=== PATIENT | female | born 1980 | race African-American/Black ===

== ENCOUNTER 2017-01-24 08:00 | Inpatient (IN) | payer BC, OTHER ==
[2017-01-24] MEDS: ELECTROLYTE-148 SOLN 1,000 ML IV SCH (12:30)
[2017-01-24 13:07] VITALS: BMI 37.8
[2017-01-24] MEDS ORDERED: ONDANSETRON 4 MG/2 ML VIAL IVPB PRN (13:12)
[2017-01-24] MEDS ORDERED: ELECTROLYTE-148 SOLN 500 ML IV ONE (13:39)
[2017-01-24] MEDS ORDERED: CITRIC ACID/SODIUM CITRATE 30 ML UNIT-DOSE CUP PO ONE (13:39)
--- NOTE | 2017-01-24 13:51 | HP ---
Past Medical History - Admission Chief Complaint: here for scheduled repeat c section History of Present Illness: 36 y/o female here for repeat c section. No complaints today. Has daughter with tate-hirschorn syndrome, followed with MFM this - amniocentesis normal. Pt failed 1'GTT, couldn't tolerate 3'GTT - blood sugars overall controlled with diet. Otherwise uncomplicated . History Source: Patient, Medical Record Limitations to Obtaining History: No Limitations - Past Medical History [employer]END J[employer] DEVELOPER: No: Alzheimer's, Migraine Cardiovascular: No: HTN, RI Pulmonary: No: Asthma, COPD Gastrointestinal: No: GERD, Irritable Bowel Disease Hepatobiliary: No: Cholecystitis, Hepatitis B Renal/: No: Renal Failure, UTI Reproductive: Yes: Fibroids. No: Ectopic , Endometriosis ...: 5 ...Para: 2 ...Term: 2 ...: 0 ...Spon : 1 ...Induced : 1 ...Multiple Gestation: 0 ...LMP: 04/25/16 ... Weeks Gestation by Dates: 39.1 ...EDC by Dates: 01/30/17 ...EDC by Sono: 02/04/17 Heme/Onc: No: Anemia, Sickle Cell Disease Infectious Disease: No: HIV, STD's Psych: No: Anxiety, Bipolar, Depression Dermatology: No: Eczema, Melanoma - Past Surgical History Past Surgical History: Yes: None Hx Myomectomy: No Hx Transabdominal Cerclage: No - Smoking History Smoking history: Never smoked Have you smoked in the past 12 months: No - Alcohol/Substance Use Hx Alcohol Use: No History of Substance Use: reports: None - Social History Usual Living Arrangement: Yes: With Spouse ADL: Independent History of Recent Travel: No Home Medications - Allergies Allergies/Adverse Reactions: Allergies Allergy/AdvReac Type Severity Reaction Status Date / Time No Known Drug Allergies Allergy Verified 01/24/17 13:13 - Home Medications Home Medications: Ambulatory Orders Pnv95/Iron Fum/Folic Acid [ Caplet] 1 each PO DAILY 01/10/16 Review of Systems - Review of Systems Constitutional: reports: No Symptoms Eyes: reports: No Symptoms HENT: reports: No Symptoms Neck: reports: No Symptoms Cardiovascular: reports: No Symptoms Respiratory: reports: No Symptoms Gastrointestinal: reports: No Symptoms Genitourinary: reports: No Symptoms Breasts: reports: No Symptoms Reported Musculoskeletal: reports: No Symptoms Integumentary: reports: No Symptoms Neurological: reports: No Symptoms Endocrine: reports: No Symptoms Hematology/Lymphatic: reports: No Symptoms Psychiatric: reports: No Symptoms Physical Exam - Maternity Vital Signs: Vital Signs Temperature 98.2 F 01/24/17 12:00 Pulse Rate 108 H 01/24/17 12:00 Respiratory Rate 20 01/24/17 12:00 Blood Pressure 132/55 01/24/17 12:00 O2 Sat by Pulse Oximetry (%) Constitutional: Yes: Well Nourished, No Distress, Calm Eyes: Yes: Conjunctiva Clear, EOM Intact HENT: Yes: Atraumatic, Normocephalic Neck: Yes: Supple, Trachea Midline Cardiovascular: Yes: Regular Rate and Rhythm Lungs: Clear to auscultation - Abdominal Exam/OB Fundal Height: 40 Number of Fetuses: Single Presentation: Vertex Contractions: No Category: I Decelerations: None - Vaginal Exam/OB Vaginal Bleediing: No Amniotic Membrane Status: Intact Hemorrhage Risk Assessment - Risk Factors Medium Risk Factors: Yes: Prior , uterine surgery,or multiple laparotomies High Risk Factors: Yes: None Risk Score: 1 Risk Level: Medium Risk Problem List - Problems (1) Term Code(s): Z34.80 - ENCOUNTER FOR SUPRVSN OF NORMAL , UNSP TRIMESTER (2) History of delivery Code(s): Z98.891 - HISTORY OF UTERINE SCAR FROM PREVIOUS SURGERY Assessment/Plan 36 y/o female here for scheduled repeat c section at 39 weeks. - FHTS cat 1 - NPO, SCDs, abdominal prep - anesthesia and nursing aware
[2017-01-24] MEDS ORDERED: METHYLERGONOVINE MALEATE 0.2 MG/1 ML AMP IM PRN ×2 (15:09→15:10)
[2017-01-24] MEDS ORDERED: oxyCODONE HCL 5 MG TABLET PO PRN ×2 (15:10)
[2017-01-24] MEDS ORDERED: SIMETHICONE 80 MG TAB.CHEW (FP) PO PRN (15:10)
[2017-01-24] MEDS ORDERED: HYDROmorphone HCL CARPU-JECT 1 MG/1 ML DISP.SYRIN IM PRN (15:11)
[2017-01-24 15:52] LABS: BASOPHIL 0.5 % (0-2.0); EOSINOPHIL 0.4 % (0-4.5); MCH 20.6 pg (25.7-33.7); MCHC 29.6 g/dl (32.0-36.0); MEAN CELL VOLUME 69.4 fl (80-96); MEAN PLT VOLUME 9.4 fl (7.5-11.1); NEUTROPHILS 77.2 % (42.8-82.8); PLATELET COUNT 139 K/MM3 (134-434); RDW 18.8 % (11.6-15.6); WHITE BLOOD COUNT 10.8 K/mm3 (4.0-10.0)
[2017-01-24] MEDS: OXYTOCIN 20 UNITS in 0.9% NS 1,000 ML IV SCH ×2 (16:00→21:20)
[2017-01-24 17:18] LABS: INR 1.09 (0.82-1.09)
--- NOTE | 2017-01-24 17:44 | OP ---
Operative Note - Note: Operative Date: 01/24/17 Pre-Operative Diagnosis: prior section X 2, term SIUP Operation: Repeat section Findings: dense adhesions from uterus to anterior abdominal wall Post-Operative Diagnosis: Same as Pre-op Surgeon: Christie Rush Chairperson Anesthesiology: Mervin Kothari Anesthesiologist/HEALTH SPA MANAGER: Cat Oliva Anesthesia: Spinal Specimens Removed: placenta Estimated Blood Loss (mls): 1,000 Operative Report Dictated: Yes
[2017-01-24] MEDS ORDERED: CEFAZOLIN 1 GM/D5W 50 ML IVPB SCH (18:00)
[2017-01-24] MEDS: CEFAZOLIN 1 GM/D5W 50 ML IVPB SCH (21:10)
[2017-01-24 22:21] LABS: MCH 22.1 pg (25.7-33.7); MCHC 29.9 g/dl (32.0-36.0); MEAN CELL VOLUME 73.9 fl (80-96); MEAN PLT VOLUME 10.4 fl (7.5-11.1); PLATELET COUNT 131 K/MM3 (134-434); RDW 20.6 % (11.6-15.6); WHITE BLOOD COUNT 18.4 K/mm3 (4.0-10.0)
[2017-01-25] MEDS ORDERED: CEFAZOLIN (PRE-DOCKED) 50 ML IVPB ONE (02:31)
[2017-01-25] MEDS: CEFAZOLIN 1 GM/D5W 50 ML IVPB SCH ×2 (03:59→15:09)
[2017-01-25] MEDS: ACETAMINOPHEN 325 MG TABLET (FP) PO PRN ×2 (08:06→19:58)
[2017-01-25] MEDS: SIMETHICONE 80 MG TAB.CHEW (FP) PO PRN ×2 (08:06→19:58)
[2017-01-25] MEDS: IBUPROFEN 600 MG TABLET (FP) PO PRN ×2 (08:07→20:04)
[2017-01-25 08:46] LABS: MCH 22.3 pg (25.7-33.7); MCHC 30.5 g/dl (32.0-36.0); MEAN CELL VOLUME 73.2 fl (80-96); PLATELET COUNT 123 K/MM3 (134-434); RDW 19.7 % (11.6-15.6); WHITE BLOOD COUNT 22.1 K/mm3 (4.0-10.0)
--- NOTE | 2017-01-25 08:46 | PN ---
Progress Note, Physician Chief Complaint: SHE OFFERS NO COM,PLAINTS History of Present Illness: S/P SECTION AND BLOOD TRANSFUSION CONDITION IS STABLE - Current Medication List Current Medications: Active Medications Acetaminophen (Tylenol -) 650 mg PO Q4H PRN PRN Reason: FEVER OR PAIN Last Admin: 01/25/17 08:06 Dose: 650 mg Bisacodyl (Dulcolax Suppository -) 10 mg RC PRN PRN PRN Reason: CONSTIPATION Diphenhydramine HCl (Benadryl Injection -) 25 mg IVPUSH Q4H PRN PRN Reason: Pruritis Last Admin: 01/25/17 00:45 Dose: 25 mg Hydromorphone HCl (Dilaudid Injection -) 1 mg IM Q4H PRN PRN Reason: PAIN Parenteral Electrolytes (Plasma-Lyte 148 -) 1,000 mls @ 125 mls/hr IV ASDIR GA Last Admin: 01/24/17 12:30 Dose: 125 mls/hr Oxytocin/Sodium Chloride (Normal Saline+20 Units Oxytocin -) 1,000 mls @ 125 mls/hr IV ASDIR GA Last Admin: 01/24/17 21:20 Dose: 125 mls/hr Cefazolin Sodium (Ancef 1 Gm Premixed Ivpb -) 50 mls @ 100 mls/hr IVPB Q8H GA Stop: 01/25/17 12:29 Last Admin: 01/25/17 03:59 Dose: 100 mls/hr Ibuprofen (Motrin -) 600 mg PO Q4H PRN PRN Reason: PAIN Last Admin: 01/25/17 08:07 Dose: 600 mg Methylergonovine Maleate (Methergine Injection -) 0.2 mg IM Q4H PRN PRN Reason: Excessive Bleeding (L&D) Methylergonovine Maleate (Methergine Injection -) 0.2 mg IM Q4H PRN PRN Reason: Excessive Bleeding (L&D) Oxycodone HCl (Roxicodone -) 5 mg PO Q4H PRN PRN Reason: PAIN LEVEL 1-5 Oxycodone HCl (Roxicodone -) 10 mg PO Q4H PRN PRN Reason: PAIN LEVEL 6-10 Simethicone (Mylicon -) 80 mg PO Q4H PRN PRN Reason: GAS Last Admin: 01/25/17 08:06 Dose: 80 mg Simethicone (Mylicon -) 80 mg PO Q4H PRN PRN Reason: GAS - Objective Vital Signs: Vital Signs Temperature 97.9 F 01/25/17 01:00 Pulse Rate 82 01/25/17 01:00 Respiratory Rate 20 01/25/17 06:00 Blood Pressure 120/67 01/25/17 01:00 O2 Sat by Pulse Oximetry (%) 100 01/24/17 18:45 Constitutional: Yes: Well Nourished, No Distress Eyes: Yes: WNL, Conjunctiva Clear HENT: Yes: WNL Neck: Yes: WNL Cardiovascular: Yes: WNL, Regular Rate and Rhythm Respiratory: Yes: WNL, Regular Gastrointestinal: Yes: WNL, Normal Bowel Sounds ...Rectal Exam: Yes: Deferred Genitourinary: Yes: WNL Breast(s): Yes: WNL Musculoskeletal: Yes: WNL Extremities: Yes: WNL Edema: No Peripheral Pulses WNL: Yes Integumentary: Yes: WNL Wound/Incision: Yes: Dressing Dry and Intact Neurological: Yes: Alert, Oriented ...Motor Strength: WNL Psychiatric: Yes: WNL, Alert, Oriented Labs: INR, PTT INR 1.09 (0.82-1.09) 01/24/17 15:25 Fibrinogen 337.0 mg/dL (238-498) 01/24/17 15:25 Assessment/Plan CONDITION STABLE S/P SECTION DAY #1 CONDITION IS STABLE H/H S/P BLOOD TRANSFUSION IS WNL ADVANCE DIET AND ACTIVITIES
--- NOTE | 2017-01-25 09:00 | OP ---
DATE OF OPERATION: 01/24/2017 PREOPERATIVE DIAGNOSIS: Prior section x2, full-term . POSTOPERATIVE DIAGNOSIS: Prior section x2, full-term , dense adhesions from the uterus to the anterior abdominal wall, post hemorrhage. PROCEDURE: Repeat low transverse section. SURGEON: Christie Rush DO HEALTH SERVICES RN: CHRISTIANO Chavis ANESTHESIA: Spinal by Dr. Oliva FINDINGS: Included dense adhesions from the anterior uterus to the anterior abdominal wall - unable to visualize fallopian tubes and ovaries. COMPLICATIONS: Included hemorrhage with an estimated blood loss of 1000 cc. SPECIMENS: Placenta sent to pathology for permanent evaluation. Sponge, needle, and instrument count was reported to be correct. DISPOSITION: Stable to PACU. BRIEF HISTORY AND PROCEDURE: The patient is a 36-year-old female who was admitted to [facility] on January 24, 2017 for a scheduled repeat section. The consents for the procedure were signed upon admission after risks/benefits/ alternatives were explained to the patient in detail and questions were answered. DESCRIPTION OF PROCEDURE: The patient was then back to the operating room where she was given spinal anesthesia by Dr. Oliva and placed on the surgical bed in a dorsal supine position. A Coronado catheter was placed under sterile conditions. The patient was prepped and draped in the usual sterile fashion, and a hard time-out was performed. A Pfannenstiel skin incision was created in the skin using a scalpel and carried to the underlying layer of rectus fascia with the Bovie. The fascial incision was extended in the superolateral direction with the Bovie. The fascia was tented upward and dissected off the underlying layer of rectus muscle. The musculature was then elevated in the midline and was sharply with the knife. After separation of the muscle, there was no clear delineation between the uterus, the rectus muscle, and no clear peritoneal layer was noted. Immediate access to the uterus was noted upon muscle separation. There was a limited exposure of the anterior uterus at this time so the rectus musculature on the left side was incised until adequate space on the uterus was exposed for an incision. Next, a transverse incision was created on the anterior wall of the uterus and carried in a superolateral direction bluntly. The infant was delivered then from the left occiput transverse position without difficulty. Bilateral shoulders delivered with ease along with the remaining of the . The cord was clamped twice and cut in between. The was taken over to the warmer to be assessed by the Neonatology staff where the received scores of 9 and 9. The placenta was then delivered spontaneously and intact. The uterus was cleared of all amniotic membrane and debris with a dry lap sponge. The uterus was unable to be elevated out of the abdomen due to the dense adhesions, and the hysterotomy was then reapproximated in several layers using 1-Vicryl as well as 0 Biosyn suture in a running locked fashion. During this repair, during to friable scar tissue, there was some bleeding that was difficult to control; however, after several stitches and application of Surgicel, hemostasis was eventually achieved. After uterus was repaired, again , no peritoneal layer was appreciated to reapproximate. Next, the musculature was reapproximated in several interrupted [id number] sutures using 0 Biosyn. Next, the fascia was reapproximated using 1 Vicryl suture in a running fashion. The subcutaneous tissue was irrigated, and the skin was reapproximated using madhav. The patient tolerated the procedure well. EBL was noted to be 1000cc. Sponge, needle, and instrument count was reported to be correct at the end of the case. CHRISTIE RUSH DO /[id number] MTDD
--- NOTE | 2017-01-25 09:55 | PN ---
Progress Note (short form) - Note Progress Note: Post anesthesia note POD#1 S/P repeat with spinal. Pat seen and examined. VSS. CBC to the base line after 2 UPRBC transfusion. . no post anesthesia complications. Signing off.
[2017-01-25 10:06] LABS: ANISOCYTOSIS 1+; HYPOCHROMIA 1+; MICROCYTOSIS 1+; PLATELET COMMENT2 NO CLOTTING DETECTED; PLATELET ESTIMATE SLT DECREASED (NORMAL); POLYCHROMASIA 1+
[2017-01-25] MEDS ORDERED: BISACODYL 10 MG SUPP.RECT RC PRN ×2 (15:09→15:10)
[2017-01-26] MEDS: SIMETHICONE 80 MG TAB.CHEW (FP) PO PRN ×3 (03:27→18:28)
[2017-01-26] MEDS: ACETAMINOPHEN 325 MG TABLET (FP) PO PRN ×3 (03:27→18:29)
[2017-01-26] MEDS: IBUPROFEN 600 MG TABLET (FP) PO PRN ×3 (03:28→18:28)
--- NOTE | 2017-01-26 08:37 | PN ---
Post Progress Note - Subjective Subjective: 36 yo Para 3, status post repeat , seen and evaluated. Doing well. Post Day: 2 Type of Delivery: Repeat C/S Vital Signs: Vital Signs Temperature 98.2 F 01/25/17 22:00 Pulse Rate 91 H 01/25/17 22:00 Respiratory Rate 18 01/25/17 22:00 Blood Pressure 114/61 01/25/17 22:00 O2 Sat by Pulse Oximetry (%) 100 01/24/17 18:45 Breast Exam: Yes: Soft Uterus: Yes: Fundus Firm Incision: Yes: Dressing dry and intact Abdomen/GI: Yes: Abdomen soft, Tolerating PO Lochia: Yes: Rubra Lochia, amount: Small Extremities: Yes: Calves non-tender Perineum: Yes: Intact Activity: Ambulating - Labs Labs: CBC WBC 22.1 K/mm3 (4.0-10.0) H 01/25/17 07:35 Corrected WBC (auto) Cancelled 01/24/17 21:15 RBC 3.67 M/mm3 (3.60-5.2) 01/25/17 07:35 Hgb 8.2 GM/dL (10.7-15.3) L D 01/25/17 07:35 Hct 26.8 % (32.4-45.2) L 01/25/17 07:35 MCV 73.2 fl (80-96) L 01/25/17 07:35 MCHC 30.5 g/dl (32.0-36.0) L 01/25/17 07:35 RDW 19.7 % (11.6-15.6) H 01/25/17 07:35 Plt Count 123 K/MM3 (134-434) L 01/25/17 07:35 MPV 10.0 fl (7.5-11.1) 01/25/17 07:35 Neutrophils % 74.0 % (42.8-82.8) 01/25/17 07:35 Lymphocytes % 8.0 % (8-40) D 01/25/17 07:35 Monocytes % 6.0 % (3.8-10.2) 01/25/17 07:35 Eosinophils % 1.0 % (0-4.5) D 01/25/17 07:35 Basophils % 0.5 % (0-2.0) 01/24/17 15:25 Band Neutrophils 7.0 % (0-10) 01/25/17 07:35 Nucleated RBCs 4 % (0-0) H 01/25/17 07:35 Differential Comment Cancelled 01/24/17 21:15 Smudge Cells Cancelled 01/24/17 21:15 Platelet Estimate Slt decreased (NORMAL) 01/25/17 07:35 Platelet Comment No clumping noted 01/25/17 07:35 Platelet Comment No clotting detected 01/25/17 07:35 RBC Morphology Cancelled 01/24/17 21:15 Polychromasia 1+ 01/25/17 07:35 Hypochromic-Microcytic 1+ 01/25/17 07:35 Anisocytosis 1+ 01/25/17 07:35 Microcytosis 1+ 01/25/17 07:35 Problem List - Problems (1) Status post repeat low transverse section Code(s): Z98.891 - HISTORY OF UTERINE SCAR FROM PREVIOUS SURGERY Assessment/Plan Status post repeat Stable Continue routine Post op care
[2017-01-26] MEDS: PRENATAL VITAMINS W/ FOLIC ACID TABLET (FP) PO SCH (12:00)
[2017-01-26] MEDS: ELECTROLYTE-148 SOLN 1,000 ML IV SCH (17:32)
[2017-01-26] MEDS: OXYTOCIN 20 UNITS in 0.9% NS 1,000 ML IV SCH (17:33)
[2017-01-27 07:13] LABS: BASOPHIL 0.3 % (0-2.0); EOSINOPHIL 0.6 % (0-4.5); MCH 22.7 pg (25.7-33.7); MCHC 31.4 g/dl (32.0-36.0); MEAN CELL VOLUME 72.1 fl (80-96); NEUTROPHILS 83.3 % (42.8-82.8); PLATELET COUNT 195 K/MM3 (134-434); RDW 20.5 % (11.6-15.6); WHITE BLOOD COUNT 17.3 K/mm3 (4.0-10.0)
[2017-01-27] MEDS: PRENATAL VITAMINS W/ FOLIC ACID TABLET (FP) PO SCH (10:05)
--- NOTE | 2017-01-27 11:07 | PN ---
Post Progress Note - Subjective Subjective: Pt seen/evaluated and doing well. Pain is controlled. Tolerating diet, ambulating, voiding. No CP/SOB/F/C/ZAMORANO or other complaints. Type of Delivery: Repeat C/S Vital Signs: Vital Signs Temperature 98.6 F 01/27/17 09:20 Pulse Rate 86 01/27/17 09:20 Respiratory Rate 18 01/27/17 09:20 Blood Pressure 116/68 01/27/17 09:20 O2 Sat by Pulse Oximetry (%) 100 01/24/17 18:45 Breast Exam: Yes: Soft Uterus: Yes: Fundus below umbilicus Abdomen/GI: Yes: Abdomen soft, Tender, Passing flatus, Tolerating PO. No: Abdominal Distention Lochia: Yes: Rubra Lochia, amount: Small Extremities: Yes: Calves non-tender. No: Edema Perineum: Yes: Intact Activity: Ambulating - Labs Labs: CBC WBC 17.3 K/mm3 (4.0-10.0) H 01/27/17 06:30 Corrected WBC (auto) Cancelled 01/24/17 21:15 RBC 3.62 M/mm3 (3.60-5.2) 01/27/17 06:30 Hgb 8.2 GM/dL (10.7-15.3) L 01/27/17 06:30 Hct 26.1 % (32.4-45.2) L 01/27/17 06:30 MCV 72.1 fl (80-96) L 01/27/17 06:30 MCHC 31.4 g/dl (32.0-36.0) L 01/27/17 06:30 RDW 20.5 % (11.6-15.6) H 01/27/17 06:30 Plt Count 195 K/MM3 (134-434) D 01/27/17 06:30 MPV 9.0 fl (7.5-11.1) 01/27/17 06:30 Neutrophils % 83.3 % (42.8-82.8) H 01/27/17 06:30 Lymphocytes % 8.0 % (8-40) 01/27/17 06:30 Monocytes % 7.8 % (3.8-10.2) 01/27/17 06:30 Eosinophils % 0.6 % (0-4.5) 01/27/17 06:30 Basophils % 0.3 % (0-2.0) 01/27/17 06:30 Band Neutrophils 7.0 % (0-10) 01/25/17 07:35 Nucleated RBCs 4 % (0-0) H 01/25/17 07:35 Differential Comment Cancelled 01/24/17 21:15 Smudge Cells Cancelled 01/24/17 21:15 Platelet Estimate Slt decreased (NORMAL) 01/25/17 07:35 Platelet Comment No clumping noted 01/25/17 07:35 Platelet Comment No clotting detected 01/25/17 07:35 RBC Morphology Cancelled 01/24/17 21:15 Polychromasia 1+ 01/25/17 07:35 Hypochromic-Microcytic 1+ 01/25/17 07:35 Anisocytosis 1+ 01/25/17 07:35 Microcytosis 1+ 01/25/17 07:35 Problem List - Problems (1) Term Code(s): Z34.80 - ENCOUNTER FOR SUPRVSN OF NORMAL , UNSP TRIMESTER (2) History of delivery Code(s): Z98.891 - HISTORY OF UTERINE SCAR FROM PREVIOUS SURGERY (3) Anemia Code(s): D64.9 - ANEMIA, UNSPECIFIED Assessment/Plan 36 y/o POD#3 s/p repeat section and blood transfusion 2/2 post hemorrhage due to surgical blood loss - AFVSS - Pt feels well, Hgb stable at 8.2 - will continue vitamins and start oral Iron therapy - regular diet, ambulation, PO pain meds, - routine care - plan for discharge home in a.m.
--- NOTE | 2017-01-27 11:10 | DS ---
[id number] Rate 18 01/27/17 09:20 Blood Pressure 116/68 01/27/17 09:20 O2 Sat by Pulse Oximetry (%) 100 01/24/17 18:45 Labs: CBC, BMP 01/27/17 06:30 Delivery - Delivery Section: Repeat, Low Flap Transverse Type of Anesthesia: Spinal Episiotomy/Laceration: None EBL (cc): 1,000 Delivery, Single - Stages of Labor Date of Delivery: 01/24/17 Time of Delivery: 14:09 Time Placenta Delivered: 14:10 Placenta: Yes: Manual Removal - Condition of Sample Tailor/Therapist'S Assistant Present: Yes Name: Paula Negron Gender: Female Weight: 6 lb 13 oz Total Hours ROM (Hrs/Mins): 0hrs 2min - 1 Minute Total Score: 9 5 Minutes Total Score: 9 - Feeding Plan Initial Plan: Exclusive throughout hospitalization Discharge Summary Reason For Visit: C SECTION Current Active Problems Anemia (Acute) History of delivery (Acute) Status post repeat low transverse section (Acute) Term (Acute) Other Procedures: repeat section Hospital Course: Patient was admitted to [facility] on 01/24/17 for scheduled repeat section. The patient underwent a repeat on that date - see operative report for full details. The patient did undergo a post hemorrhage with intraoperative blood loss of 1000cc. Pt received 2 units packed red blood cells immediately post op and on post op day 3 the patient's hemoglobin was stable at 8.2. The patient was discharged home in stable condition on post op day 4. Condition: Good - Instructions Diet, Activity, Other Instructions: Physical activity Resume your normal everyday activity as tolerated but no heavy lifting or strenuous exercise until seen by your surgeon. You may walk unlimited amounts and climb stairs. You may resume driving the car when you feel safe and comfortable behind the wheel. No sexual activity as instructed. Wound care If there are tapes on the skin leave them in place. They will peel off in the next 7 to 10 days. Do Not Peel them off. You may shower the day after surgery. If there are tapes present on the skin, you may shower over them. Diet There are no dietary restrictions. Eat healthy, high-fiber foods. Drink 6 to 8 glasses of liquid each day. This will assist in keeping your bowels regular. Pain management You may take Tylenol or Ibuprofen (for example, Motrin, Advil etc.) for pain, If any pain prescription medication is ordered to the pharmacy it should be taken as prescribed for moderate to severe pain. Call MD for any of the following: Severe pain not relieved by medication Fever of 101 or higher Excessive bleeding or drainage on dressing Inability to urinate Referrals: Christie Rush DO [Staff Physician] - 1 Week Disposition: HOME - Home Medications Comprehensive Discharge Medication List: Ambulatory Orders Pnv95/Iron Fum/Folic Acid [ Caplet] 1 each PO DAILY 01/10/16 Percocet 5/325mg - take 1 tablet by mouth every 4 hours as needed for severe pain Ferrous Sulfate 325mg tablets - take one tablet by mouth twice daily Ibuprofen 600mg tablets - take 1 tablet by mouth every 6 hours as needed for mild to moderate pain
[2017-01-27] MEDS: IBUPROFEN 600 MG TABLET (FP) PO PRN ×2 (13:28→23:04)
[2017-01-27] MEDS: FERROUS SO4 325 MG TABLET (FP) PO SCH (17:10)
[2017-01-27] MEDS: ACETAMINOPHEN 325 MG TABLET (FP) PO PRN (23:04)
[2017-01-27] MEDS: SIMETHICONE 80 MG TAB.CHEW (FP) PO PRN (23:04)
[2017-01-28] MEDS: FERROUS SO4 325 MG TABLET (FP) PO SCH (08:00)
[2017-01-28] MEDS: PRENATAL VITAMINS W/ FOLIC ACID TABLET (FP) PO SCH (10:00)
[2017-01-28] MEDS: SIMETHICONE 80 MG TAB.CHEW (FP) PO PRN (10:00)
[2017-01-28] MEDS: ACETAMINOPHEN 325 MG TABLET (FP) PO PRN (10:00)
[2017-01-28] MEDS: IBUPROFEN 600 MG TABLET (FP) PO PRN (10:01)
[2017-01-28 10:37] VITALS: BP 125/71; PULSE 93; TEMP 98.8
--- NOTE | 2017-01-29 14:46 | PATH ---
Surgical Pathology Report Patient Name: KENDALL LLANES Med. Rec. #: [id number] /Age/Gender: 1980 (Age: 36) / F Account: [id number] Location: [facility] OBS/ELECTRONIC HEALTH RECORDS SPECIALIST Taken: 01/27/2017 Received: 01/27/2017 Reported: 01/29/2017 Physicians: Christie Rush M.D. Specimen(s) Received PLACENTA Clinical History , x2 Final Diagnosis PLACENTA, DELIVERY: FOCALLY DISRUPTED THIRD TRIMESTER PLACENTA WITH THREE VESSEL UMBILICAL CORD AND UNREMARKABLE PLACENTAL MEMBRANES. Electronically Signed Xavier Pulliam M.D. Gross Description The specimen is received fresh labeled placenta and is a 550 gram, 21.0 x 16.5 x 2.0 cm. placenta with attached membranes and umbilical cord. The attached membranes are smith, thick, cloudy and insert marginally. The umbilical cord measures 33 cm. in length and averages 1.3 cm. in diameter. The cord inserts eccentrically, 5 cm. to the nearest margin. No true knots or strictures are identified. Cut surface of the umbilical cord reveals 3 vessels. The surface is mckeon-blue with minimal fibrin deposition and appropriate caliber vessels. The maternal surface is red-brown with focal defects. Sectioning reveals red-brown, spongy parenchyma. No lesions are identified. Key Person sections are submitted in three cassettes as follows: 1- membrane rolls and umbilical cord; 2-3- full thickness sections of placenta. /01/28/2017 saudi01/28/2017
== END 2017-01-28 13:24 | disposition home or self-care (01) | DRG 765 ==
LOC: JLDR 11:50 → J3W 22:01
PROVIDERS: ADMIT Obstetrics & Gynecology; ATTEND Obstetrics & Gynecology
PROC: 10D00Z1 Extraction of Products of Conception, Low, Open Approach (ICD-10-PCS; principal; 2017-01-24)
PROC: 30233N1 Transfusion of Nonautologous Red Blood Cells into Peripheral Vein, Percutaneous Approach (ICD-10-PCS; 2017-01-24)
DX: O34.211 Maternal care for low transverse scar from previous cesarean delivery (principal); O72.1 Other immediate postpartum hemorrhage; O99.62 Diseases of the digestive system complicating childbirth; O99.02 Anemia complicating childbirth; D64.9 Anemia, unspecified; K66.0 Peritoneal adhesions (postprocedural) (postinfection); Z3A.39 39 weeks gestation of pregnancy; Z37.0 Single live birth
CPT/HCPCS: 36415; 36430; 71020-TC; 85025; 85027; 85384; 85610; 85730; 86850; 86900; 86901; 86922; 88307-TC; P9038; P9058

== ENCOUNTER 2018-12-30 16:51 | Emergency (ER) | payer BC, OTHER ==
[2018-12-30 16:56] VITALS: BP 146/70; PULSE 98; TEMP 98.8; BMI 33.2
--- NOTE | 2018-12-30 16:56 | PDOC ---
Rapid Medical Evaluation Chief Complaint: ,Possible Time Seen by Provider: 12/30/18 16:53 Medical Evaluation: Allergies Allergy/AdvReac Type Severity Reaction Status Date / Time No Known Drug Allergies Allergy Verified 12/30/18 16:52 12/30/18 16:53 I have performed a brief in-person evaluation of this patient. The patient presents with a chief complaint of: sent by senior care provider because of high B HCG without IUP Pertinent physical exam findings:NAD I have ordered the following:US and B HCK CBC, CMP, PT/INR, type and screen The patient will proceed to the ED for further evaluation. Discharge Disposition - Diagnosis Pelvic pain - Referrals - Patient Instructions - Post Discharge Activity
[2018-12-30 17:28] LABS: EOS % 2.3 % (0-4.5); HEMATOCRIT 32.1 % (32.4-45.2); HEMOGLOBIN 9.9 GM/dL (10.7-15.3); LYMPH % 21.5 % (8-40); MCH 23.1 pg (25.7-33.7); MEAN CELL VOLUME 74.6 fl (80-96); MEAN PLT VOLUME 8.9 fl (7.5-11.1); MONO % 9.7 % (3.8-10.2); NEUT % 65.5 % (42.8-82.8); PLATELET COUNT 240 K/MM3 (134-434); RBC 4.31 M/mm3 (3.60-5.2); RDW 17.4 % (11.6-15.6); WHITE BLOOD COUNT 7.1 K/mm3 (4.0-10.0)
[2018-12-30 17:42] LABS: PROTHROMBIN TIME (PATIENT) 11.8 SEC (9.7-13.0)
--- NOTE | 2018-12-30 17:57 | PDOC ---
History of Present Illness - General Chief Complaint: ,Possible Stated Complaint: OTOPIC Time Seen by Provider: 12/30/18 16:53 History Source: Patient - History of Present Illness Timing/Duration: reports: constant Past History - Past Medical History Allergies/Adverse Reactions: Allergies Allergy/AdvReac Type Severity Reaction Status Date / Time No Known Drug Allergies Allergy Verified 12/30/18 16:52 Home Medications: Ambulatory Orders Pnv95/Iron Fum/Folic Acid [ Caplet] 1 each PO DAILY 01/10/16 Ibuprofen [Motrin -] 600 mg PO QID PRN #28 tablet 01/27/17 Ferrous Sulfate [Feosol] 325 mg PO BID #60 tablet 01/28/17 Oxycodone HCl/Acetaminophen [Percocet 5-325 mg Tablet -] 1 tab PO Q4H #20 tablet MDD 6 01/28/17 Anemia: No Asthma: No Cancer: No Cardiac Disorders: No CVA: No COPD: No CHF: No Dementia: No Diabetes: No GI Disorders: No Disorders: No HTN: No Hypercholesterolemia: No Liver Disease: No Seizures: No Thyroid Disease: No - Surgical History Abdominal Surgery: No Appendectomy: No Cardiac Surgery: No Cholecystectomy: No Lung Surgery: No Neurologic Surgery: No Orthopedic Surgery: No - Immunization History Immunization Up to Date: Yes - Suicide/Smoking/Psychosocial Hx Smoking History: Never smoked Have you smoked in the past 12 months: No Hx Alcohol Use: No Drug/Substance Use Hx: No Substance Use Type: None Hx Substance Use Treatment: No Review of Systems - Review of Systems Constitutional: No: Chills, Fever ABD/GI: Yes: Nausea, Vomiting, Abdominal cramping : No: Burning, Dysuria, Discharge, Flank Pain, Hematuria Musculoskeletal: No: Back Pain *Physical Exam - Vital Signs Last Vital Signs Temp Pulse Resp BP Pulse Ox 98.8 F 98 H 16 146/70 100 12/30/18 16:52 12/30/18 16:52 12/30/18 16:52 12/30/18 16:52 12/30/18 16:52 - Physical Exam General Appearance: Yes: Appropriately Dressed. No: Apparent Distress HEENT: positive: Normal Voice Neck: positive: Supple Respiratory/Chest: negative: Respiratory Distress Gastrointestinal/Abdominal: positive: Normal Bowel Sounds, Tender (minimal ttp to R lower abd), Soft. negative: Distended, Guarding, Rebound Musculoskeletal: negative: CVA Tenderness Integumentary: positive: Dry, Warm Neurologic: positive: Fully Oriented, Alert, Normal Mood/Affect ED Treatment Course - LABORATORY CBC & Chemistry Diagram: 12/30/18 17:09 - ADDITIONAL ORDERS Additional order review: Laboratory Results 12/30/18 17:09 PT with INR 11.80 INR 1.00 12/30/18 17:09 RBC 4.31 MCV 74.6 L MCHC 31.0 L RDW 17.4 H MPV 8.9 Neutrophils % 65.5 D Lymphocytes % 21.5 D Monocytes % 9.7 Eosinophils % 2.3 D Basophils % 1.0 D Medical Decision Making - Medical Decision Making 12/30/18 17:50 38 yo F, h/o anemia on iron pills, (s/p 1 spon AB), s/p csection x 3, sent from clinic to r/o ectopic. Patient states last week after developing nausea, vomiting, took a home test that was positive. Went to the clinic last Friday and had a 2nd + preg test w/ no evidence of on US per patient. Beta at that time was > 3000. Had follow-up yesterday and had repeat beta done, which was > than 9000. Repeat ultrasound again showed no evidence of . Patient reports vague R lower abd pain. No abdominal bleeding, dysuria, vag discharge, fever or chills see exam R/o ectopic Inappropriate rise in beta w/ no e/o on multiple US in clinic Stable w/ no current abd pain or vag bleed -US -labs 12/30/18 18:40 Beta >9K. US done w/ read pending. Pt remains stable at this time 12/30/18 18:57 Per radiology, pt has a caesarean scar vs intramural ectopic measuring ~1.3 cm containing 0.5 cm embryonic pole, no cardiac activity. Case was discussed with Dr. Rush, patient's ELECTRONIC PAGE MAKEUP SYSTEM OPERATOR, who states she is enroute to evaluate patient in the ED. Pt signed out to RUSS Fink at this time pending disposition 12/30/18 19:09 *DC/Admit/Observation/Transfer Diagnosis at time of Disposition: Pelvic pain Ectopic Qualifiers: Location of ectopic : unspecified location Intrauterine status: unspecified Qualified Code(s): O00.90 - Unspecified ectopic without intrauterine - Referrals Referrals: Christie Rush DO [Primary Care Provider] - - Patient Instructions - Post Discharge Activity
[2018-12-30 18:13] LABS: HCG,QUALITATIVE URINE Positive
[2018-12-30 18:14] LABS: PH,URINE 6.5 (5.0-8.0); URINE APPEARANCE CLEAR; URINE BILIRUBIN NEGATIVE (NEGATIVE); URINE COLOR YELLOW; URINE GLUCOSE (UA) NEGATIVE (NEGATIVE); URINE KETONE NEGATIVE (NEGATIVE); URINE LEUK ESTERASE NEGATIVE (NEGATIVE); URINE NITRITE NEGATIVE (NEGATIVE); URINE PROTEIN NEGATIVE (NEGATIVE)
--- NOTE | 2018-12-30 19:01 | PDOC ---
*Physical Exam - Vital Signs Last Vital Signs Temp Pulse Resp BP Pulse Ox 98.8 F 98 H 16 146/70 100 12/30/18 16:52 12/30/18 16:52 12/30/18 16:52 12/30/18 16:52 12/30/18 16:52 ED Treatment Course - LABORATORY CBC & Chemistry Diagram: 12/30/18 17:09 12/30/18 17:08 - ADDITIONAL ORDERS Additional order review: Laboratory Results 12/30/18 12/30/18 12/30/18 18:00 18:00 17:09 PT with INR 11.80 INR 1.00 Beta HCG, Quant Urine Color Yellow Cancelled Urine Appearance Clear Cancelled Urine pH 6.5 Cancelled Ur Specific [place] 1.022 Cancelled Urine Protein Negative Cancelled Urine Glucose (UA) Negative Cancelled Urine Ketones Negative Cancelled Urine Blood Negative Cancelled Urine Nitrite Negative Cancelled Urine Bilirubin Negative Cancelled Urine Urobilinogen 1.0 Cancelled Ur Leukocyte Esterase Negative Cancelled Urine WBC (Auto) Cancelled Urine RBC (Auto) Cancelled Urine Casts (Auto) Cancelled U Pathogenic Cast Auto Cancelled U Epithel Cells (Auto) Cancelled U Sm Round Cell (Auto) Cancelled Urine Crystals (Auto) Cancelled Urine Bacteria (Auto) Cancelled Urine Yeast (Auto) Cancelled Urine HCG, Qual Positive 12/30/18 17:08 PT with INR INR Beta HCG, Quant 9106.8 Urine Color Urine Appearance Urine pH Ur Specific [place] Urine Protein Urine Glucose (UA) Urine Ketones Urine Blood Urine Nitrite Urine Bilirubin Urine Urobilinogen Ur Leukocyte Esterase Urine WBC (Auto) Urine RBC (Auto) Urine Casts (Auto) U Pathogenic Cast Auto U Epithel Cells (Auto) U Sm Round Cell (Auto) Urine Crystals (Auto) Urine Bacteria (Auto) Urine Yeast (Auto) Urine HCG, Qual 12/30/18 17:09 RBC 4.31 MCV 74.6 L MCHC 31.0 L RDW 17.4 H MPV 8.9 Neutrophils % 65.5 D Lymphocytes % 21.5 D Monocytes % 9.7 Eosinophils % 2.3 D Basophils % 1.0 D Medical Decision Making - Medical Decision Making 12/30/18 19:00 38 yo F (s/p 1 spontaneous AB), s/p x 3, sent from clinic to eval for ectopic. BHCG done > 9000 Repeat ultrasound demonstrates no (+) abdominal pain No vaginal bleeding, dysuria, vag discharge, fever or chills US: caesarean scar vs intramural ectopic measuring ~1.3 cm containing 0.5 cm embryonic pole, no cardiac activity. Awaiting call to Dr. Rush Pt seen by Midlevel Provider under my direct supervision Pt interviewed and examined Ancillary studies reviewed I agree with plan as outlined by Midlevel Provider *DC/Admit/Observation/Transfer Diagnosis at time of Disposition: Ectopic - Discharge Dispostion Disposition: HOME Condition at time of disposition: Stable - Referrals Referrals: Christie Rush DO [Primary Care Provider] - - Patient Instructions Additional Instructions: You have been given a dose of methotrexate here today. For full treatment of the ectopic another dose to be given on 01/02 here in the emergency department. He will also have blood drawn and that time. This medication will cause abdominal pain, cramping, vaginal bleeding with possible clots. Return to emergency department sooner if you develop any sharp abdominal pain, dizziness, lightheadedness, shortness of breath or for any other concerns. - Post Discharge Activity Forms/Work/School Notes: Back to Work
--- NOTE | 2018-12-30 19:21 | PDOC ---
*Physical Exam - Vital Signs Last Vital Signs Temp Pulse Resp BP Pulse Ox 98.8 F 98 H 16 146/70 100 12/30/18 16:52 12/30/18 16:52 12/30/18 16:52 12/30/18 16:52 12/30/18 16:52 ED Treatment Course - LABORATORY CBC & Chemistry Diagram: 12/30/18 17:09 - ADDITIONAL ORDERS Additional order review: Laboratory Results 12/30/18 12/30/18 12/30/18 18:00 18:00 17:09 PT with INR 11.80 INR 1.00 Beta HCG, Quant Urine Color Yellow Cancelled Urine Appearance Clear Cancelled Urine pH 6.5 Cancelled Ur Specific [place] 1.022 Cancelled Urine Protein Negative Cancelled Urine Glucose (UA) Negative Cancelled Urine Ketones Negative Cancelled Urine Blood Negative Cancelled Urine Nitrite Negative Cancelled Urine Bilirubin Negative Cancelled Urine Urobilinogen 1.0 Cancelled Ur Leukocyte Esterase Negative Cancelled Urine WBC (Auto) Cancelled Urine RBC (Auto) Cancelled Urine Casts (Auto) Cancelled U Pathogenic Cast Auto Cancelled U Epithel Cells (Auto) Cancelled U Sm Round Cell (Auto) Cancelled Urine Crystals (Auto) Cancelled Urine Bacteria (Auto) Cancelled Urine Yeast (Auto) Cancelled Urine HCG, Qual Positive 12/30/18 17:08 PT with INR INR Beta HCG, Quant 9106.8 Urine Color Urine Appearance Urine pH Ur Specific [place] Urine Protein Urine Glucose (UA) Urine Ketones Urine Blood Urine Nitrite Urine Bilirubin Urine Urobilinogen Ur Leukocyte Esterase Urine WBC (Auto) Urine RBC (Auto) Urine Casts (Auto) U Pathogenic Cast Auto U Epithel Cells (Auto) U Sm Round Cell (Auto) Urine Crystals (Auto) Urine Bacteria (Auto) Urine Yeast (Auto) Urine HCG, Qual 12/30/18 17:09 RBC 4.31 MCV 74.6 L MCHC 31.0 L RDW 17.4 H MPV 8.9 Neutrophils % 65.5 D Lymphocytes % 21.5 D Monocytes % 9.7 Eosinophils % 2.3 D Basophils % 1.0 D Progress Note - Progress Note Progress Note: Received patient from CHRISTIANO Hahn. Briefly this a 38-year-old woman was seen in the clinic and sent to the ER to rule out ectopic . Patient had a beta hCG of 3000 on Friday and today had a repeat beta which was 9000. Laboratory testing here is notable for anemia 9.9/32.1. Normal platelets. Beta hCG 9106.8. Urinalysis is unremarkable. Ultrasound as read by Dr. Childress: scar ectopic is seen ( versus representing an intramural ectopic ). No free intraperitoneal fluid is noted. Dr. Rush- the patient's FANS CLERK is aware and is in route to evaluate patient in the emergency department. Dispel pending FANS CLERK evaluation. Medical Decision Making - Medical Decision Making 12/30/18 20:10 Patient was evaluated by FANS CLERK and case is been discussed with Dr. Rush. Plan is to give the patient methotrexate one dose here and for the patient to follow up on Tuesday 01/02 for repeat methotrexate and beta testing. Patient will then follow-up with Dr. Rush's office for her ongoing care. 12/30/18 20:34 I discussed the physical exam findings, ancillary test results and final diagnoses with the patient. I answered all of the patient's questions. The patient was satisfied with the care received and felt comfortable with the discharge plan and treatment plan. The patient will call their primary care physician within 24 hours to arrange follow-up and will return to the Emergency Department with any new, persistent or worsening symptoms. *DC/Admit/Observation/Transfer Diagnosis at time of Disposition: Ectopic Qualifiers: Location of ectopic : unspecified location Intrauterine status: unspecified Qualified Code(s): O00.90 - Unspecified ectopic without intrauterine - Discharge Dispostion Disposition: HOME Condition at time of disposition: Stable Decision to Admit order: No - Referrals Referrals: Christie Rush DO [Primary Care Provider] - - Patient Instructions Additional Instructions: You have been given a dose of methotrexate here today. For full treatment of the ectopic another dose to be given on 01/02 here in the emergency department. He will also have blood drawn and that time. This medication will cause abdominal pain, cramping, vaginal bleeding with possible clots. Return to emergency department sooner if you develop any sharp abdominal pain, dizziness, lightheadedness, shortness of breath or for any other concerns. - Post Discharge Activity Forms/Work/School Notes: Back to Work
[2018-12-30] MEDS ORDERED: METHOTREXATE SODIUM/PF 25 MG/ML VIAL IM ONE (20:10)
[2018-12-31 01:28] LABS: ALBUMIN 3.6 g/dl (3.4-5.0); ALK PHOS 80 U/L (45-117); ANION GAP 10 MMOL/L (8-16); BILIRUBIN,TOTAL 0.3 mg/dL (0.2-1); BLOOD UREA NITROGEN 9 mg/dL (7-18); CALCIUM 8.9 mg/dL (8.5-10.1); CHLORIDE 105 mmol/L (98-107); CO2 22 mmol/L (21-32); CREATININE 0.6 mg/dL (0.55-1.3); GLUCOSE,RANDOM 90 mg/dL (74-106); POTASSIUM 3.7 mmol/L (3.5-5.1); SGOT/AST 14 U/L (15-37); SGPT/ALT 14 U/L (13-61); SODIUM 137 mmol/L (136-145); TOT PROT 7.4 g/dl (6.4-8.2)
== END 2018-12-30 21:03 | disposition home or self-care (01) ==
LOC: JER 16:51
PROC: 3E023GC Introduction of Other Therapeutic Substance into Muscle, Percutaneous Approach (ICD-10-PCS; principal; 2018-12-30)
DX: O00.90 Unspecified ectopic pregnancy without intrauterine pregnancy (principal); R10.2 Pelvic and perineal pain
CPT/HCPCS: 36415; 76801-TC; 76817-TC; 80053; 81003; 84702; 84703; 85025; 85610; 86850; 86900; 86901; 99282-25; J9260

== ENCOUNTER 2019-01-02 13:10 | Emergency (ER) | payer BC, OTHER ==
[2019-01-02 13:21] VITALS: BP 113/64; PULSE 90; TEMP 98.2; BMI 35.2
--- NOTE | 2019-01-02 14:58 | PDOC ---
History of Present Illness - General Chief Complaint: [facility] [place] Stated Complaint: REVISIT Time Seen by Provider: 01/02/19 13:48 History Source: Patient Exam Limitations: No Limitations (38y/o F for beta and mtx) Past History - Travel Traveled outside of the country in the last 30 days: No Close contact w/someone who was outside of country & ill: No - Past Medical History Allergies/Adverse Reactions: Allergies Allergy/AdvReac Type Severity Reaction Status Date / Time No Known Drug Allergies Allergy Verified 01/02/19 13:18 Home Medications: Ambulatory Orders Pnv95/Iron Fum/Folic Acid [ Caplet] 1 each PO DAILY 01/10/16 Ibuprofen [Motrin -] 600 mg PO QID PRN #28 tablet 01/27/17 Ferrous Sulfate [Feosol] 325 mg PO BID #60 tablet 01/28/17 Oxycodone HCl/Acetaminophen [Percocet 5-325 mg Tablet -] 1 tab PO Q4H #20 tablet MDD 6 01/28/17 Anemia: No Asthma: No Cancer: No Cardiac Disorders: No CVA: No COPD: No CHF: No Dementia: No Diabetes: No GI Disorders: No Disorders: No HTN: No Hypercholesterolemia: No Liver Disease: No Seizures: No Thyroid Disease: No - Surgical History Abdominal Surgery: No Appendectomy: No Cardiac Surgery: No Cholecystectomy: No Lung Surgery: No Neurologic Surgery: No Orthopedic Surgery: No - Reproductive History (#): 5 Para: 3 Cervical CA: No Dysfunctional Uterine Bleeding: No Ectopic : Yes Endometrial CA: No Polycystic Ovaries: No Therapeutic (s) & number: No Tubal Ligation: No Spontaneous : 1 - Immunization History Immunization Up to Date: Yes - Suicide/Smoking/Psychosocial Hx Smoking History: Never smoked Have you smoked in the past 12 months: No Hx Alcohol Use: No Drug/Substance Use Hx: No Substance Use Type: None Hx Substance Use Treatment: No Review of Systems - Review of Systems Is the patient limited Malagasy proficient: No Constitutional: Yes: Chills, Fever HEENTM: Yes: Nose Congestion, Throat Pain. No: Ear Pain, Ear Discharge, Mouth Swelling Respiratory: No: Cough, Orthopnea, Shortness of Breath, Wheezing, Productive cough ABD/GI: Yes: Nausea. No: Abdominal Distended, Diarrhea, Vomiting : No: Dysuria Musculoskeletal: No: Back Pain Neurological: Yes: Headache. No: Numbness, Paresthesia, Pre-Existing Deficit, Seizure, Tingling, Tremors, Weakness *Physical Exam - Vital Signs Last Vital Signs Temp Pulse Resp BP Pulse Ox 98.2 F 90 16 113/64 99 01/02/19 13:18 01/02/19 13:18 01/02/19 13:18 01/02/19 13:18 01/02/19 13:18 - Physical Exam General Appearance: Yes: Nourished HEENT: positive: EOMI, JAMAL, TMs Normal, Pharyngeal Erythema, Tonsillar Exudate , Tonsillar Erythema, Nasal Congestion, Rhinorrhea Neck: positive: Tender Respiratory/Chest: positive: Lungs Clear, Normal Breath Sounds Cardiovascular: positive: Regular Rhythm, Regular Rate, S1, S2 Gastrointestinal/Abdominal: positive: Normal Bowel Sounds, Soft Extremity: positive: Normal Capillary Refill Integumentary: positive: Normal Color Neurologic: positive: doctorate of chiropractic II-XII NML intact, Fully Oriented, Alert, Normal Mood/ Affect, Normal Response, Motor Strength 5/5 Medical Decision Making - Medical Decision Making 01/02/19 14:52 38y/o F for repeat beta and methotrexate. Pt was dx with ectopic on 12/30/18, beta at the time was 9K, she was given one dose of mtx with instruction to return for rpt beta and another round of mtx. pt has no complaints today, denies abd pain or bleeding. 01/02/19 14:[address] Infante covering for Dr. Rush she will come up with plan after beta trend beta today [id number], c/w with Dr Infante who agrees mtx can be given with f/u in office on Friday return precautions given to pt *DC/Admit/Observation/Transfer Diagnosis at time of Disposition: Ectopic Qualifiers: Location of ectopic : other location Intrauterine status: without intrauterine Qualified Code(s): O00.80 - Other ectopic without intrauterine - Discharge Dispostion Disposition: HOME Decision to Admit order: No - Referrals - Patient Instructions Additional Instructions: Were given the second dose of Metrotrexate today in the emergency room. Please follow-up with Dr. Rush on Friday as scheduled. The medication may cause abdominal pain cramping vaginal bleeding with heavy clots. Please return to the emergency room if the above symptoms worsening,any sharp abdominal pain dizziness or heavy bleeding and if you're using more than 7 pads in the day - Post Discharge Activity
[2019-01-02] MEDS ORDERED: METHOTREXATE SODIUM/PF 25 MG/ML VIAL IM ONE (15:51)
== END 2019-01-02 16:57 | disposition home or self-care (01) ==
LOC: JER 13:10 → JERFT 13:10
DX: O00.80 Other ectopic pregnancy without intrauterine pregnancy (principal)
CPT/HCPCS: 36415; 84702; 99281-25